=== PATIENT | male | born 1985 | race Caucasian/White ===

== ENCOUNTER 2017-06-23 18:10 | Emergency (ER) | payer MEDICAID ==
[~2017-06-23] VITALS: Ht 177.8 cm; Wt 85.0 kg
[2017-06-24 01:16] LABS: BASOPHILS % 0.5 % (0.0-2.0); CHLORIDE 108 mEq/L (98-107); EOSINOPHILS % 1.4 % (0.0-5.0); HEMATOCRIT. 41.6 % (42.0-52.0); HEMOGLOBIN. 14.3 g/dL (14.0-18.0); MEAN CORPUSCULAR HEMOGLOBIN 30.2 pg (28.0-32.0); MEAN CORPUSCULAR VOLUME 87.9 fL (80.0-94.0); MEAN PLATELET VOLUME 8.6 fl (7.4-10.4); MONOCYTES % 8.8 % (2.0-8.0); NEUTROPHILS % 69.3 % (40.0-76.0); PLATELET 156 x1000/uL (130-400); RED BLOOD CELL COUNT 4.74 mill/uL (4.7-6.1); RED CELL DISTRIBUTION WIDTH 13.5 % (11.6-14.6)
[2017-06-24 01:25] LABS: CARBON DIOXIDE 27 mEq/L (21-32)
[2017-06-24 01:28] LABS: CLARITY URINE CLEAR (CLEAR); COLOR URINE ORANGE (YELLOW); GLUCOSE URINE NEGATIVE (NEGATIVE); KETONES URINE NEGATIVE (NEGATIVE); LEUKOCYTE ESTERASE URINE 1+ (NEGATIVE); NITRITE URINE POSITIVE (NEGATIVE); OCCULT BLOOD URINE NEGATIVE (NEGATIVE); PROTEIN URINE TRACE (NEGATIVE); SPECIFIC GRAVITY URINE 1.045 (1.005-1.030)
[2017-06-24] MEDS ORDERED: CEFTRIAXONE SODIUM 250 MG/VIAL IM SCH (03:30)
[2017-06-24] MEDS ORDERED: HYDROCODONE/APAP 7.5/325MG 1 TAB TABLET PO SCH (03:30)
[2017-06-24] MEDS ORDERED: CEFTRIAXONE SODIUM 250 MG/VIAL IM ONE (03:30)
[2017-06-24] MEDS ORDERED: LIDOCAINE HCL 1% 20ML VIAL (Pyxis) INJ INFIL ONE (03:30)
[2017-06-24] MEDS ORDERED: AZITHROMYCIN 500 MG TABLET PO SCH (03:30)
[2017-06-24 03:49] VITALS: BP 109/71
== END 2017-06-24 04:00 | disposition home or self-care (01) ==
LOC: ER 18:27
DX: N39.0 Urinary tract infection, site not specified (principal); N43.3 Hydrocele, unspecified
CPT/HCPCS: 36415; 76770; 76870; 80053; 81001; 85025; 93976; 96372; 99285; J0696; J3490; Z7610

== ENCOUNTER 2017-12-29 21:49 | Emergency (ER) | payer MEDICAID ==
[~2017-12-29] VITALS: Ht 175.3 cm; Wt 79.0 kg
[2017-12-29 22:21] VITALS: BP 115/62
== END 2017-12-30 03:31 | disposition left against medical advice (07) ==
LOC: ER 21:49
DX: R10.9 Unspecified abdominal pain (principal); R11.2 Nausea with vomiting, unspecified; F17.200 Nicotine dependence, unspecified, uncomplicated; Z53.21 Procedure and treatment not carried out due to patient leaving prior to being seen by health care provider